=== PATIENT | female | born 1955 | race Caucasian/White ===

== ENCOUNTER 2016-09-13 12:57 | Emergency (ER) | payer BC, OTHER ==
[2016-09-13] MEDS ORDERED: Ondansetron 4 MG/2 ML SDV IVPUSH ONE (13:12)
[2016-09-13] MEDS ORDERED: Sodium Chloride 0.9% 5 ML Syringe FLUSH PRN (13:12)
[2016-09-13] MEDS ORDERED: HYDROmorphone 1 MG/ML Syringe IVPUSH ONE (13:12)
[2016-09-13 13:15] VITALS: BP 179/95
--- NOTE | 2016-09-13 13:28 | EDM.PDOC ---
ED HPI Trauma - General Chief Complaint: Upper Extremity Injury/Pain Stated Complaint: right wrist pain Time Seen by Provider: 09/13/16 13:11 Source: Reports: Patient History Limitations: Reports: No limitations - History of Present Illness INITIAL COMMENTS - FREE TEXT/NARRATIVE: PT PRESENTS TO ER AFTER ACCIDENTALLY SLIPPING AND FALLING ON ICE JUST PRIOR TO ARRIVAL. PT STATES SHE FELL WITH OUTSTRETCHED AND EXTENDED RIGHT ARM BEHIND HER. DENIES ANY OTHER PAIN OR INJURY, NEAR SYNCOPY PRIOR TO OR LOC AFTER FALL. Symptom Onset Date: 09/13/16 Symptom Onset Time: 12:30 Occurred When: just prior to arrival Occurred Where: other (STREET) Method of Injury: fall Severity: moderate Pain/Injury Location: Reports: upper extremity, right Consciousness: Reports: no loss of consciousness Associated Symptoms: Reports: no other symptoms Allergies/ADRs: Allergies Penicillins Allergy (Verified 09/13/16 13:06) Cannot Remember Social & Family History - Tobacco Use Smoking Status *Q: Never Smoker Second Hand Smoke Exposure: No - Caffeine Use Caffeine Use: Reports: Coffee - Recreational Drug Use Recreational Drug Use: No Review of Systems - Review of Systems Review Of Systems: ROS reveals no pertinent complaints other than HPI. Constitutional: Reports: no symptoms Eyes: Reports: no symptoms Ears: Reports: no symptoms Nose: Reports: no symptoms Mouth/Throat: Reports: no symptoms Respiratory: Reports: no symptoms Cardiovascular: Reports: no symptoms GI/Abdominal: Reports: No symptoms Genitourinary: Reports: no symptoms Musculoskeletal: Reports: arm pain, hand pain, joint pain (RIGHT WRIST) Skin: Reports: no symptoms Neurological: Reports: no symptoms Psychiatric: Reports: no symptoms Trauma Exam - Physical Exam Exam: See Below Exam Limited By: No limitations General Appearance: Reports: alert, WD/WN, mild distress Head: Reports: atraumatic, normocephalic Throat/Mouth: Reports: Normal inspection, Normal oropharynx, No airway compromise Neck: Reports: non-tender, full range of motion Respiratory Exam: Reports: no respiratory distress Back: Reports: full range of motion, normal inspection, non-tender Extremities: Reports: tenderness (RIGHT WRIST EDEMA, DEFORMITY. NO NEUROVASCULAR DEFICIT NOTED) Neurologic: Reports: alert, normal mood/affect, oriented x 3 Skin: Reports: Normal color, Warm/dry - Aldo Coma Score [place] Total: 15 ED TRAUMA EXTREMITY PROCEDURES - Splinting Right Upper Extremity Splint site: RIGHT WRIST Course - Vital Signs Last Recorded V/S: Last Vital Signs Temp 96.8 F 09/13/16 13:07 Pulse 93 09/13/16 13:07 Resp 16 09/13/16 13:07 BP 179/95 H 09/13/16 13:07 Pulse Ox 99 09/13/16 13:07 - Orders/Labs/Meds Orders: Active Orders 24 hr Category Date Time Status Peripheral IV Care [RC] . DIRECTED Care 09/13/16 13:12 Ordered Wrist Comp Min 3V Rt [CR] Stat Exams 09/13/16 13:06 Ordered Sodium Chloride 0.9% [Syrex Flush] Med 09/13/16 13:12 Ordered 5 ml FLUSH Q8HR PRN Peripheral IV Insertion Adult [OM.PC] Routine Oth 09/13/16 13:12 Ordered Medication Orders Sodium Chloride (Syrex Flush) 5 ml FLUSH Q8HR PRN PRN Reason: Keep Vein Open Meds: Medications Generic Name Dose Route Start Last Admin Trade Name Freq PRN Reason Stop Dose Admin Sodium Chloride 5 ml 09/13/16 13:12 Syrex Flush FLUSH Q8HR PRN Keep Vein Open Discontinued Medications Generic Name Dose Route Start Last Admin Trade Name Freq PRN Reason Stop Dose Admin Hydromorphone HCl 0.5 mg 09/13/16 13:12 Dilaudid IVPUSH 09/13/16 13:13 ONETIME ONE Ondansetron HCl 4 mg 09/13/16 13:12 Zofran IVPUSH 09/13/16 13:13 ONETIME ONE - Radiology Interpretation Free Text/Narrative:: XRAY SHOWS DISPLACED INTRA ARTICULAR RIGHT DISTAL RADIAL FRACTURE WITH ULNAR STYLOID FRACTURE. - Re-Assessments/Exams Free Text/Narrative Re-Assessment/Exam: 09/13/16 13:56 PT AFEBRILE, NONTOXIC APPEARING, PAIN CONTROLLED. DISCUSSED CASE WITH SRIDEVI LY FOR DR DEVINE. RECOMMENDED PLACING PT IN [place] SPLINT AND WILL HAVE SURGERY TOMORROW AT [facility] IN [place]. NPO AFTER MIDNIGHT Free Text/Narrative Re-Assessment/Exam: 09/13/16 14:24 MODIFIED [place] SPLINT PLACED DUE TO LENGTH OF ARM AND LIMITED ORTHO SUPPLIES Departure - Departure Time of Disposition: 14:25 Disposition: Home, Self-Care 01 Condition: good Clinical Impression: Fracture of radius and ulna Qualifiers: Encounter type: initial encounter Fracture type: closed Laterality: right Qualified Code(s): S52.501A - Unspecified fracture of the lower end of right radius, initial encounter for closed fracture; S52.601A - Unspecified fracture of lower end of right ulna, initial encounter for closed fracture Instructions: Cast or Splint Care, Exui-ak-Alnt, How to Use a Sling, Easy-to- Read, Radial Fracture Forms: ED Department Discharge Additional Instructions: YOU WILL BE CONTACTED TODAY FOR SURGERY SCHEDULE TOMORROW. DO NOT EAT AFTER MIDNIGHT TONIGHT. SURGERY WILL BE TOMORROW AT [facility] IN [place] WITH DR DEVINE. - My Orders Last 24 Hours: My Active Orders 09/13/16 13:06 Wrist Comp Min 3V Rt [CR] Stat 09/13/16 13:12 Peripheral IV Care [RC] . DIRECTED Sodium Chloride 0.9% [Syrex Flush] 5 ml FLUSH Q8HR PRN Peripheral IV Insertion Adult [OM.PC] Routine - Assessment/Plan Last 24 Hours: My Active Orders 09/13/16 13:06 Wrist Comp Min 3V Rt [CR] Stat 09/13/16 13:12 Peripheral IV Care [RC] . DIRECTED Sodium Chloride 0.9% [Syrex Flush] 5 ml FLUSH Q8HR PRN Peripheral IV Insertion Adult [OM.PC] Routine
== END 2016-09-13 14:40 | disposition home or self-care (01) ==
LOC: KA.ED 12:57
DX: S52.501A Unspecified fracture of the lower end of right radius, initial encounter for closed fracture (principal); S52.601A Unspecified fracture of lower end of right ulna, initial encounter for closed fracture; W00.0XXA Fall on same level due to ice and snow, initial encounter; Z88.0 Allergy status to penicillin
CPT/HCPCS: 29125; 73110; 96374; 96375; 99283; J1170; J2405

== ENCOUNTER 2018-03-21 14:35 | Observation (INO) | payer OTHER ==
[2018-03-21] MEDS ORDERED: Escitalopram 10 MG Tab PO SCH (15:15)
[2018-03-21] MEDS: Dextrose 5%-0.45% NaCl 1,000 ML IV SCH ×2 (15:23→23:16)
[2018-03-21] MEDS: Morphine 2 MG/ML Syringe IVPUSH PRN ×2 (15:23→16:19)
[2018-03-21] MEDS ORDERED: cefTRIAXone 1 GM Vial IVPUSH ONE (16:46)
[2018-03-21] MEDS ORDERED: Morphine 4 MG/ML Syringe IVPUSH PRN (18:37)
[2018-03-21] MEDS: Diatrizoate Meglumine/Diatrizoate Sodium 37% 120 ML Bottle PO ONE ×2 (19:00→19:51)
[2018-03-21] MEDS: Iopamidol 612 MG/ML 75 ML Bottle IV ONE ×2 (19:00→19:53)
[2018-03-21] MEDS ORDERED: Sodium Chloride 0.9% 50 ML SDV FLUSH SCH (19:00)
[2018-03-21] MEDS ORDERED: Ketorolac 60 MG/2 ML SDV IM PRN (20:17)
[2018-03-21] MEDS: Ketorolac 30 MG/ML SDV IM PRN (21:39)
[2018-03-22] MEDS: Acetaminophen 325 MG Tab PO PRN ×3 (04:17→20:23)
[2018-03-22] MEDS: Ketorolac 30 MG/ML SDV IM PRN (06:22)
[2018-03-22] MEDS: Dextrose 5%-0.45% NaCl 1,000 ML IV SCH ×2 (07:22→16:12)
[2018-03-22] MEDS ORDERED: SUMAtriptan 25 MG Tab PO ONE (07:33)
[2018-03-22 07:49] LABS: CHLORIDE,CL 107 mmol/L (98-115); SODIUM,NA 144 mmol/L (136-145)
[2018-03-22] MEDS ORDERED: Escitalopram 10 MG Tab PO SCH ×2 (09:00→21:00)
[2018-03-22] MEDS ORDERED: Gabapentin 300 MG Cap PO PRN (10:46)
[2018-03-22] MEDS: Ciprofloxacin in D5W 400 MG in Premix Bag 1 BAG IV SCH ×4 (11:04→23:22)
--- NOTE | 2018-03-22 12:13 | PCM.PN ---
- General Info Date of Service: 03/22/18 Admission Dx/Problem (Free Text): 62 yo female was seen in the clinic on 03/21/18 with complaints of RUQ abdominal pain that radiates around to the right flank. She reported that the pain had been gradually coming on with intermittent pain for about 2 weeks abut about 3 days before clinic visit, the pain was gradually worsening to the point that it was 8/10. Pt reports that in the last 2 months she had eaten at 2 different restaurants and had diarrhea and abdominal pain after each time. She cut all fats out of her diet and has had no further diarrhea since then. She reports a normal stool with a normal BM yesterday morning. She has had no vomiting, nausea or constipation. No fever. No dysuria. Surgical history of appendectomy. Abdominal Xray showed some gas within ascending colon. "Findings most likely reflect ileus." US of gallbladder showing 1. No sonographic evidence of cholelithiasis or cholecystits. Positive sonographic Scott's sign. CT of abdomen showed no significant abnormality in the abdomen or pelvis. CBC and CMP are essentially WNL UA with ketones 15, leukocytes small, bacteria moderate with moderate epithelial cells. She was treated with rocephin IV on admission for possible UTI Pt continues with RUQ abdominal pain, particularly tender with light palpation over R)CVA. Pain is 5/10 constantly and gradually builds to 7/10. Pain stays at 7/10 until she has toradal. She had no improvement in pain with Morphine 4 mg IV. She was given toradal 30 mg IV for pain which she states brought the pain down to 5/10 Pt has a history of depression. Her last year and she has had increased depression since then. She had been on effexor for years which she felt was no longer helpful. She began a taper 03/11 in attempt to change to another antidepressant. She denies any untoward effects with the taper and discontinuing of effexor. Started on lexapro at time of admission to the hospital. Pt has a history of migraine headaches managed with imitrex. She had a migraine headache this morning that did improve with imitrex. PT has sarcoidosis. Annual CXR on 03/11/18 showed stable appearance. Subjective Update: Continues with RUQ abdominal pain. Most tender right CVA. She is questioning if it could be a pyelonephritis. Reports past history of UTI developed into pyelo within 24 hours. Functional Status: Denies: Pain Controlled - Review of Systems General: Denies: Fever, Weakness, Fatigue HEENT: Reports: Headaches (migraine) Pulmonary: Reports: No Symptoms Cardiovascular: Reports: No Symptoms Gastrointestinal: Reports: Abdominal Pain. Denies: Constipation, Diarrhea, Nausea, Vomiting Genitourinary: Reports: Flank Pain. Denies: Dysuria, Frequency, Burning, Urgency Musculoskeletal: Reports: No Symptoms Skin: Reports: No Symptoms Neurological: Reports: No Symptoms Psychiatric: Reports: Other (depression. finds herself crying often) - Patient Data Vitals - Most Recent: Last Vital Signs Temp 98.3 F 03/22/18 06:37 Pulse 53 L 03/22/18 06:37 Resp 16 03/22/18 06:37 BP 114/58 L 03/22/18 06:37 Pulse Ox 93 L 03/22/18 06:37 Weight - Most Recent: 260 lb I&O - Last 24 Hours: Intake & Output 03/21/18 03/22/18 03/22/18 22:59 06:59 14:59 Intake Total 780 1066 Output Total 50 900 Balance 730 166 Lab Results Last 24 Hours: Laboratory Results - last 24 hr 03/21/18 03/22/18 03/22/18 Range/Units 16:20 07:15 07:15 WBC 5.71 (5.00-10.00) 10^3/uL RBC 4.78 (3.80-5.50) 10^6/uL Hgb 13.8 (12.0-16.0) g/dL Hct 43.1 (37.0-47.0) % MCV 90.2 (82.0-92.0) fL MCH 28.9 (27.0-31.0) pg MCHC 32.0 (32.0-36.0) g/dL RDW 13.9 (11.5-14.5) % Plt Count 243 (150-400) 10^3/uL MPV 10.6 H (7.4-10.4) fL Immature Gran % (Auto) 0.2 (0.0-5.0) % Neut % (Auto) 50.7 (50.0-70.0) % Lymph % (Auto) 34.0 (20.0-40.0) % [place] % (Auto) 8.6 H (2.0-8.0) % Eos % (Auto) 5.4 H (1.0-3.0) % Baso % (Auto) 1.1 H (0.0-1.0) % Immature Gran # (Auto) 0.01 (0.00-0.50) 10^3/uL Neut # (Auto) 2.90 (2.50-7.00) 10^3/uL Lymph # (Auto) 1.94 (1.00-4.00) 10^3/uL Fountain # (Auto) 0.49 (0.10-0.80) 10^3/uL Eos # (Auto) 0.31 H (0.10-0.30) 10^3/uL Baso # (Auto) 0.06 (0.00-0.10) 10^3/uL Sodium 144 (136-145) mmol/L Potassium 4.2 (3.3-5.3) mmol/L Chloride 107 (98-115) mmol/L Carbon Dioxide 29.2 (21.0-32.0) mmol/L Anion Gap 12.0 (5-15) mmol/L BUN 9 (6-25) mg/dL Creatinine 0.79 (0.51-1.17) mg/dL Est Cr Clr Drug Dosing 82.52 mL/min Estimated GFR (MDRD) > 60 mL/min Glucose 101 mg/dL Calcium 8.5 L (8.7-10.3) mg/dL Total Bilirubin 0.8 (0.2-1.0) mg/dL AST 22 (15-37) U/L ALT 32 (12-78) U/L Alkaline Phosphatase 66 (46-116) IU/L C-Reactive Protein (0.0-0.9) mg/dL Total Protein 6.3 L (6.4-8.2) g/dL Albumin 3.45 (3.00-4.80) g/dL Specimen Type Urinblad Urine Color Yellow (YELLOW) Urine Appearance Slightly cloudy H (CLEAR) Urine pH 5.0 (5.0-9.0) Ur Specific [place] >= 1.030 (1.005-1.030) Urine Protein Negative (NEGATIVE) mg/dL Urine Glucose (UA) Negative (NEGATIVE) mg/dL Urine Ketones 15 H (NEGATIVE) mg/dL Urine Occult Blood Negative (NEGATIVE) Urine Nitrite Negative (NEGATIVE) Urine Bilirubin Negative (NEGATIVE) Urine Urobilinogen 0.2 (0.2-1.0) E.U./dL Ur Leukocyte Esterase Small H (NEGATIVE) Urine RBC 5-10 H /HPF Urine WBC Semi-packed /HPF Ur Epithelial Cells Moderate H /LPF Urine Bacteria Moderate H (NONE TO FEW) /HPF 03/22/18 Range/Units 07:20 WBC (5.00-10.00) 10^3/uL RBC (3.80-5.50) 10^6/uL Hgb (12.0-16.0) g/dL Hct (37.0-47.0) % MCV (82.0-92.0) fL MCH (27.0-31.0) pg MCHC (32.0-36.0) g/dL RDW (11.5-14.5) % Plt Count (150-400) 10^3/uL MPV (7.4-10.4) fL Immature Gran % (Auto) (0.0-5.0) % Neut % (Auto) (50.0-70.0) % Lymph % (Auto) (20.0-40.0) % [place] % (Auto) (2.0-8.0) % Eos % (Auto) (1.0-3.0) % Baso % (Auto) (0.0-1.0) % Immature Gran # (Auto) (0.00-0.50) 10^3/uL Neut # (Auto) (2.50-7.00) 10^3/uL Lymph # (Auto) (1.00-4.00) 10^3/uL [place] # (Auto) (0.10-0.80) 10^3/uL Eos # (Auto) (0.10-0.30) 10^3/uL Baso # (Auto) (0.00-0.10) 10^3/uL Sodium (136-145) mmol/L Potassium (3.3-5.3) mmol/L Chloride (98-115) mmol/L Carbon Dioxide (21.0-32.0) mmol/L Anion Gap (5-15) mmol/L BUN (6-25) mg/dL Creatinine (0.51-1.17) mg/dL Est Cr Clr Drug Dosing mL/min Estimated GFR (MDRD) mL/min Glucose mg/dL Calcium (8.7-10.3) mg/dL Total Bilirubin (0.2-1.0) mg/dL AST (15-37) U/L ALT (12-78) U/L Alkaline Phosphatase (46-116) IU/L C-Reactive Protein 0.3 (0.0-0.9) mg/dL Total Protein (6.4-8.2) g/dL Albumin (3.00-4.80) g/dL Specimen Type Urine Color (YELLOW) Urine Appearance (CLEAR) Urine pH (5.0-9.0) Ur Specific [place] (1.005-1.030) Urine Protein (NEGATIVE) mg/dL Urine Glucose (UA) (NEGATIVE) mg/dL Urine Ketones (NEGATIVE) mg/dL Urine Occult Blood (NEGATIVE) Urine Nitrite (NEGATIVE) Urine Bilirubin (NEGATIVE) Urine Urobilinogen (0.2-1.0) E.U./dL Ur Leukocyte Esterase (NEGATIVE) Urine RBC /HPF Urine WBC /HPF Ur Epithelial Cells /LPF Urine Bacteria (NONE TO FEW) /HPF Rohith Results Last 24 Hours: Microbiology 03/21/18 16:20 Urine Culture - Preliminary Urine, Bladder MIXED POSITIVE CELESTINA DAY 1 Med Orders - Current: Current Medications Acetaminophen (Tylenol) 325 - 650 mg PO Q4H PRN PRN Reason: Pain Last Admin: 03/22/18 04:17 Dose: 650 mg Escitalopram Oxalate (Lexapro) 10 mg PO BEDTIME [facility] Gabapentin (Neurontin) 300 mg PO TID PRN PRN Reason: Pain Last Admin: 03/22/18 11:03 Dose: 300 mg Dextrose/Sodium Chloride (Dextrose 5%-1/2 Ns) 1,000 mls @ 125 mls/hr IV ASDIRECTED [facility] Last Admin: 03/22/18 07:22 Dose: 125 mls/hr Ciprofloxacin/Dextrose 400 mg/ (Premix) 200 mls @ 200 mls/hr IV Q12H [facility] Last Admin: 03/22/18 11:04 Dose: 200 mls/hr Ketorolac Tromethamine (Toradol) 30 mg IM BID PRN PRN Reason: Pain Last Admin: 03/22/18 06:22 Dose: 30 mg Sodium Chloride (Normal Saline) 50 ml FLUSH ASDIRECTED ALF Discontinued Medications Ceftriaxone Sodium (Rocephin) 1 gm IVPUSH ONETIME ONE Stop: 03/21/18 16:47 Last Admin: 03/21/18 17:26 Dose: 1 gm Diatrizoate Meglum/Diatrizoate Sod (Gastrografin 37%) 120 ml PO ONETIME ONE Stop: 03/21/18 18:52 Last Admin: 03/21/18 19:51 Dose: 120 ml Escitalopram Oxalate (Lexapro) 10 mg PO DAILY ALF Last Admin: 03/21/18 15:23 Dose: 10 mg Escitalopram Oxalate (Lexapro) 10 mg PO DAILY [facility] Iopamidol (Isovue-300 (61%)) 75 ml IV ONETIME ONE Stop: 03/21/18 18:52 Last Admin: 03/21/18 19:53 Dose: Not Given Ketorolac Tromethamine (Toradol) 60 mg IM Q8H PRN PRN Reason: Pain Stop: 03/26/18 20:17 Morphine Sulfate (Morphine) 1 - 2 mg IVPUSH Q4H PRN PRN Reason: Pain Last Admin: 03/21/18 16:19 Dose: 1 mg Morphine Sulfate (Morphine) 2 - 4 mg IVPUSH Q4H PRN PRN Reason: Pain Last Admin: 03/21/18 19:26 Dose: 4 mg Sumatriptan Succinate (Imitrex) 50 mg PO ONETIME ONE Stop: 03/22/18 07:34 Last Admin: 03/22/18 07:53 Dose: 50 mg - Exam General: Alert, Oriented, Moderate Distress Lungs: Clear to Auscultation, Normal Respiratory Effort Cardiovascular: Regular Rate, Regular Rhythm GI/Abdominal Exam: Other (bowel sounds absent LUQ, diminished RUQ, nl BS lower quadrants. Generalized mild tenderness throughout with sharp pain with palpation of RUQ. Exqusite tenderness with light palpation over R) CVA) Back Exam: CVA Tenderness (L) Extremities: Normal Inspection, No Pedal Edema Skin: Warm, Dry, Intact Psy/Mental Status: Alert, Normal Affect, Normal Mood - Problem List & Annotations (1) RUQ abdominal pain SNOMED Code(s): 173374735 Code(s): R10.11 - RIGHT UPPER QUADRANT PAIN Status: Acute Priority: High Current Visit: Yes (2) Migraine headache SNOMED Code(s): 42066360 Code(s): G43.909 - MIGRAINE, UNSP, NOT INTRACTABLE, WITHOUT STATUS MIGRAINOSUS Status: Acute Current Visit: Yes - Problem List Review Problem List Initiated/Reviewed/Updated: Yes - My Orders Last 24 Hours: My Active Orders 03/21/18 21:23 Ketorolac [Toradol] 30 mg IM BID PRN 03/22/18 04:03 Acetaminophen [Tylenol] 325 - 650 mg PO Q4H PRN 03/22/18 10:46 Gabapentin [Neurontin] 300 mg PO TID PRN 03/22/18 11:00 Ciprofloxacin in D5W [Cipro in D5W 400 MG/200 ML] 400 mg Premix Bag 1 bag IV Q12H 03/22/18 Lunch Regular Diet [DIET] 03/23/18 05:00 CRP [C-REACTIVE PROTEIN] [CHEM] Routine - Assessment Assessment:: Assessment plan: RUQ pain of unkown etiology. Pt exhibiting exquisite pain over right CVA. Abdominal Xray showed some gas within ascending colon. "Findings most likely reflect ileus." She has had a nl BM. US of gallbladder showing 1. No sonographic evidence of cholelithiasis or cholecystits. Positive sonographic Scott's sign. CT of abdomen showed no significant abnormality in the abdomen or pelvis. CBC and CMP are essentially WNL UA with ketones 15, leukocytes small, bacteria moderate with moderate epithelial cells. She was treated with rocephin IV on admission for possible UTI Pt continues with RUQ abdominal pain, particularly tender with light palpation over R)CVA. Pain is 5/10 constantly and gradually builds to 7/10. Pain stays at 7/10 until she has toradal. She had no improvement in pain with Morphine 4 mg IV. She was given toradal 30 mg IV for pain which she states brought the pain down to 5/10 AT this time we will treat as a possible early developing UTI with possible pyelonephritis. No improvement after IV rocephin. Treat with Cipro 400 mg IV bid. continue toradal and add gapabentin 300 mg tid prn for pain. Check CRP today and repeat in am. repeat CBC Depression. Started on lexapro at time of admission to the hospital. Migraine headaches. She had a migraine headache this morning that did improve with imitrex. PT has sarcoidosis. Annual CXR on 03/11/18 showed stable appearance. - Plan Plan:: .
[2018-03-23] MEDS: Acetaminophen 325 MG Tab PO PRN ×2 (00:28→06:35)
[2018-03-23] MEDS: Dextrose 5%-0.45% NaCl 1,000 ML IV SCH (01:21)
[2018-03-23 06:44] VITALS: BP 137/80
[2018-03-23] MEDS: Ciprofloxacin in D5W 400 MG in Premix Bag 1 BAG IV SCH ×4 (09:30→11:01)
--- NOTE | 2018-03-23 10:11 | PCM.DCSUM1 ---
Discharge Summary - Hospital Course HPI Initial Comments: 62 yo female was seen in the clinic on 03/21/18 with complaints of RUQ abdominal pain that radiates around to the right flank. She reported that the pain had been gradually coming on with intermittent pain for about 2 weeks. About 3 days before clinic visit, the pain was gradually worsening to the point that it was 8/10. Pt reports that in the last 2 months she had eaten at 2 different restaurants and had diarrhea and abdominal pain after each time. She cut all fats out of her diet and had no further diarrhea since then. She reported a normal stool with a normal BM on morning of admission. She has had no vomiting, nausea or constipation. No fever. No dysuria. Surgical history of appendectomy. Abdominal Xray showed some gas within ascending colon. "Findings most likely reflect ileus." US of gallbladder showing: No sonographic evidence of cholelithiasis or cholecystits. Positive sonographic Scott's sign. CT of abdomen showed no significant abnormality in the abdomen or pelvis. CBC and CMP are essentially WNL UA with ketones 15, leukocytes small, bacteria moderate with moderate epithelial cells. Culture report is pending. She was treated with rocephin IV on admission for possible UTI. There was no improvement in pain 24 hours after rocephin. The pain was a constant 5/10 which gradually built to 7/10. Morphine 4 mg IV did not help the pain, slight pain improvement with toradal. Gabapentine did relieve the pain. Due to her ongoing complaints of right CVA tenderness she was treated with IV cipro for possible early development of pyelonephritis. She has had pyelonephritis in the past which she states developed within 24 hours. Pt has a history of depression. Her last year and she has had increased depression since then. She had been on effexor for years which she felt was no longer helpful. She began a taper 03/11 with plans to change to another antidepressant. She denies any untoward effects with the taper and discontinuing of effexor. Started on lexapro at time of admission to the hospital. Prescription was sent to [facility] on 03/12/18. She has not picked it up yet. Pt has a history of migraine headaches managed with imitrex. She had a migraine headache on first hospital day that did resolve with imitrex. PT has sarcoidosis. Annual CXR on 03/11/18 showed stable appearance. Diagnosis: Stroke: No - Discharge Data Discharge Date: 03/23/18 Discharge Disposition: Home, Self-Care 01 Condition: Good - Discharge Diagnosis/Problem(s) (1) RUQ abdominal pain SNOMED Code(s): 499512863 ICD Code: R10.11 - RIGHT UPPER QUADRANT PAIN Status: Acute Priority: High Current Visit: Yes (2) Migraine headache SNOMED Code(s): 67213503 ICD Code: G43.909 - MIGRAINE, UNSP, NOT INTRACTABLE, WITHOUT STATUS MIGRAINOSUS Status: Acute Current Visit: Yes Qualifiers: Status migrainosus presence: without status migrainosus Intractability: not intractable - Patient Summary/Data Recommended Follow-up Testing/Procedures: 1 week with PCP, Maggy Anup [facility] Course: Treated with Rocephin IV on admission for UTI. Changed to Cipro 400 mg BID IV with ongoing complaints of RUQ pain and Right CVA tenderness. All labs and imaging (Abd CT,Abd XRay, RUQ US) essentially WNL. Improved after 24 hours of IV cipro. As this is a holiday with pharmacy closed, she will be given 4 doses of po Cipro 500 mg to take bid and medicinal plant picker rx of cipro 500 mg bid x 10 more days. She has depression and was started on lexapro 10 mg in the hospital. She will be given lexapro to take home with her until she is able to medicinal plant picker rx that was sent to pharmacy 03/12/18. Pt had migraine in the hospital resolved with imitrex. She has rx of imitrex at home. - Patient Instructions Diet: Usual Diet as Tolerated Activity: As Tolerated Driving: May Drive Today Showering/Bathing: May Shower - Discharge Plan *PRESCRIPTION DRUG MONITORING PROGRAM REVIEWED*: Not Applicable *COPY OF PRESCRIPTION DRUG MONITORING REPORT IN PATIENT BERTHA: Not Applicable Prescriptions/Med Rec: Ciprofloxacin [Cipro XR] 500 mg PO BID 10 Days #20 tab.er Home Medications: Home Meds ALPRAZolam [Xanax] 0.125 - 0.25 tab PO BID PRN 09/13/16 [History] Acetaminophen/Caffeine [[facility] Tension Headache Gelcap] 1 tab PO ASDIRECTED PRN [History] SUMAtriptan [Imitrex] 50 mg PO ASDIRECTED PRN 09/13/16 [History] Escitalopram [Lexapro] 10 mg PO BEDTIME 03/21/18 [History] Acetaminophen [Tylenol] 325 - 650 mg PO Q4H PRN tablet 03/23/18 [Rx] Ciprofloxacin [Cipro XR] 500 mg PO BID 10 Days #20 tab.er 03/23/18 [Rx] - General Info Date of Service: 03/23/18 Admission Dx/Problem (Free Text: 62 yo female was seen in the clinic on 03/21/18 with complaints of RUQ abdominal pain that radiates around to the right flank. She reported that the pain had been gradually coming on with intermittent pain for about 2 weeks abut about 3 days before clinic visit, the pain was gradually worsening to the point that it was 8/10. Pt reports that in the last 2 months she had eaten at 2 different restaurants and had diarrhea and abdominal pain after each time. She cut all fats out of her diet and has had no further diarrhea since then. She reports a normal stool with a normal BM yesterday morning. She has had no vomiting, nausea or constipation. No fever. No dysuria. Surgical history of appendectomy. Abdominal Xray showed some gas within ascending colon. "Findings most likely reflect ileus." US of gallbladder showing 1. No sonographic evidence of cholelithiasis or cholecystits. Positive sonographic Scott's sign. CT of abdomen showed no significant abnormality in the abdomen or pelvis. CBC and CMP are essentially WNL UA with ketones 15, leukocytes small, bacteria moderate with moderate epithelial cells. She was treated with rocephin IV on admission for possible UTI Pt continues with RUQ abdominal pain, particularly tender with light palpation over R)CVA. Pain is 5/10 constantly and gradually builds to 7/10. Pain stays at 7/10 until she has toradal. She had no improvement in pain with Morphine 4 mg IV. She was given toradal 30 mg IV for pain which she states brought the pain down to 5/10 Pt has a history of depression. Her last year and she has had increased depression since then. She had been on effexor for years which she felt was no longer helpful. She began a taper 03/11 in attempt to change to another antidepressant. She denies any untoward effects with the taper and discontinuing of effexor. Started on lexapro at time of admission to the hospital. Pt has a history of migraine headaches managed with imitrex. She had a migraine headache this morning that did improve with imitrex. PT has sarcoidosis. Annual CXR on 03/11/18 showed stable appearance. Subjective Update: PT reports RUQ pain and right CVA tenderness greatly improved. States pain is now 2/10. Not needing anything for the pain. She has had 2 BMs this morning. No nausea, vomiting or diarrhea. No dysuria. Functional Status: Reports: Pain Controlled, Tolerating Diet, Ambulating, Urinating. Denies: New Symptoms - Patient Data Vitals - Most Recent: Last Vital Signs Temp 98.1 F 03/23/18 06:43 Pulse 54 L 03/23/18 06:43 Resp 18 03/23/18 06:43 BP 137/80 03/23/18 06:43 Pulse Ox 95 03/23/18 06:43 Weight - Most Recent: 260 lb I&O - Last 24 hours: Intake & Output 03/22/18 03/23/18 03/23/18 22:59 06:59 14:59 Intake Total 2347 1325 Output Total 1250 1200 Balance 1097 125 Lab Results - Last 24 hrs: Laboratory Results - last 24 hr 03/22/18 03/23/18 03/23/18 Range/Units 07:20 07:20 07:20 WBC 4.73 L (5.00-10.00) 10^3/uL RBC 4.56 (3.80-5.50) 10^6/uL Hgb 13.3 (12.0-16.0) g/dL Hct 41.4 (37.0-47.0) % MCV 90.8 (82.0-92.0) fL MCH 29.2 (27.0-31.0) pg MCHC 32.1 (32.0-36.0) g/dL RDW 13.6 (11.5-14.5) % Plt Count 226 (150-400) 10^3/uL MPV 10.4 (7.4-10.4) fL Immature Gran % (Auto) 0.0 (0.0-5.0) % Neut % (Auto) 54.1 (50.0-70.0) % Lymph % (Auto) 32.8 (20.0-40.0) % [place] % (Auto) 6.8 (2.0-8.0) % Eos % (Auto) 5.5 H (1.0-3.0) % Baso % (Auto) 0.8 (0.0-1.0) % Immature Gran # (Auto) 0.00 (0.00-0.50) 10^3/uL Neut # (Auto) 2.56 (2.50-7.00) 10^3/uL Lymph # (Auto) 1.55 (1.00-4.00) 10^3/uL [place] # (Auto) 0.32 (0.10-0.80) 10^3/uL Eos # (Auto) 0.26 (0.10-0.30) 10^3/uL Baso # (Auto) 0.04 (0.00-0.10) 10^3/uL C-Reactive Protein 0.3 < 0.2 (0.0-0.9) mg/dL IONA Results - Last 24 hrs: Microbiology 03/21/18 16:20 Urine Culture - Final Urine, Bladder MIXED CELESTINA SUGGESTIVE OF CONTAMINATION. Med Orders - Current: Current Medications Acetaminophen (Tylenol) 325 - 650 mg PO Q4H PRN PRN Reason: Pain Last Admin: 03/23/18 06:35 Dose: 650 mg Escitalopram Oxalate (Lexapro) 10 mg PO BEDTIME [facility] Last Admin: 03/22/18 20:23 Dose: 10 mg Gabapentin (Neurontin) 300 mg PO TID PRN PRN Reason: Pain Last Admin: 03/22/18 11:03 Dose: 300 mg Dextrose/Sodium Chloride (Dextrose 5%-1/2 Ns) 1,000 mls @ 125 mls/hr IV ASDIRECTED [facility] Last Admin: 03/23/18 01:21 Dose: 125 mls/hr Ciprofloxacin/Dextrose 400 mg/ (Premix) 200 mls @ 200 mls/hr IV Q12H [facility] Last Admin: 03/23/18 09:30 Dose: 200 mls/hr Ketorolac Tromethamine (Toradol) 30 mg IM BID PRN PRN Reason: Pain Last Admin: 03/22/18 06:22 Dose: 30 mg Sodium Chloride (Normal Saline) 50 ml FLUSH ASDIRECTED [facility] Last Admin: 03/21/18 19:00 Dose: 50 ml Discontinued Medications Ceftriaxone Sodium (Rocephin) 1 gm IVPUSH ONETIME ONE Stop: 03/21/18 16:47 Last Admin: 03/21/18 17:26 Dose: 1 gm Diatrizoate Meglum/Diatrizoate Sod (Gastrografin 37%) 120 ml PO ONETIME ONE Stop: 03/21/18 18:52 Last Admin: 03/21/18 19:51 Dose: 120 ml Escitalopram Oxalate (Lexapro) 10 mg PO DAILY ALF Last Admin: 03/21/18 15:23 Dose: 10 mg Escitalopram Oxalate (Lexapro) 10 mg PO DAILY ALF Iopamidol (Isovue-300 (61%)) 75 ml IV ONETIME ONE Stop: 03/21/18 18:52 Last Admin: 03/21/18 19:53 Dose: Not Given Ketorolac Tromethamine (Toradol) 60 mg IM Q8H PRN PRN Reason: Pain Stop: 03/26/18 20:17 Morphine Sulfate (Morphine) 1 - 2 mg IVPUSH Q4H PRN PRN Reason: Pain Last Admin: 03/21/18 16:19 Dose: 1 mg Morphine Sulfate (Morphine) 2 - 4 mg IVPUSH Q4H PRN PRN Reason: Pain Last Admin: 03/21/18 19:26 Dose: 4 mg Sumatriptan Succinate (Imitrex) 50 mg PO ONETIME ONE Stop: 03/22/18 07:34 Last Admin: 03/22/18 07:53 Dose: 50 mg - Exam General: Reports: Alert, Oriented Lungs: Reports: Clear to Auscultation, Normal Respiratory Effort, Other ( crackles cleared with coughing and deep breathing) Cardiovascular: Reports: Regular Rate, Regular Rhythm GI/Abdominal Exam: No Organomegaly, No Mass, Other (bowel sounds active throughout. Moderate tenderness with palpation over right lower and right upper quadrants. Positive scott's sign.). No: Distended Back Exam: Reports: CVA Tenderness (R) (mild. reported greatly improved from yesterday) Extremities: No Pedal Edema Psy/Mental Status: Reports: Alert, Normal Affect, Normal Mood
== END 2018-03-23 11:05 | disposition home or self-care (01) ==
LOC: KA.MS 14:35
PROVIDERS: ADMIT Physician Assistant Medical; ATTEND Family Medicine
DX: R10.11 Right upper quadrant pain (principal); D86.9 Sarcoidosis, unspecified; F32.9 Major depressive disorder, single episode, unspecified; G43.909 Migraine, unspecified, not intractable, without status migrainosus; Z79.899 Other long term (current) drug therapy; Z90.49 Acquired absence of other specified parts of digestive tract
CPT/HCPCS: 36415; 74177; 80053; 81001; 85025; 86140; 87086; 96361; 96365; 96366; 96372; 96375; 96376; A9270-GY; G0378; J0696; J0744; J1885; J2270; J7042; Q9963; Q9967